=== PATIENT | female | born 1995 | race Caucasian/White ===

== ENCOUNTER 2019-01-07 14:05 | Emergency (ER) | payer OTHER ==
[2019-01-07 14:21] VITALS: BP 162/112
[2019-01-07] MEDS ORDERED: ALBUTEROL SULFATE 2.5 MG/3 ML NEBU. NEB ONE (14:45)
[2019-01-07] MEDS ORDERED: AZIT250T PO (15:36)
[2019-01-07] MEDS ORDERED: ALBU2.5V5 NEB (15:36)
--- NOTE | 2019-01-07 15:36 | PHYS DOC ---
Past History Past Medical History: Anxiety, Asthma, Depression Past Surgical History: No Surgical History Smoking: Non-smoker Alcohol Use: None Drug Use: None Adult General Chief Complaint Chief Complaint: SHORTNESS OF BREATH HPI HPI Patient is a 23-year-old female who presents with complaint of cough, wheezing and shortness of breath for last several days. Patient states that she has history of asthma and has been using some albuterol nebulizer solution but states that it's not really been helping. She states that she thinks she's been running a low-grade fever. She indicates the cough has not been productive of sputum.[] Review of Systems Review of Systems Constitutional: Positive subjective fever[] Respiratory: Positive cough, wheezing and shortness of breath [] Cardiovascular: No additional information not addressed in HPI [] Neurologic: Denies headache, focal weakness or sensory changes [] All other systems were reviewed and found to be within normal limits, except as documented in this note. Current Medications Current Medications Current Medications Medications (Trade) Dose Ordered Sig/John Start Time Stop Time Status Last Admin Dose Admin Albuterol Sulfate (Ventolin) 2.5 mg 1X ONCE 01/07/19 14:45 01/07/19 14:59 DC 01/07/19 15:07 2.5 MG Allergies Allergies Allergies Coded Allergies Type Severity Reaction Last Updated Verified No Known Drug Allergies 01/30/14 No Physical Exam Physical Exam Constitutional: Well developed, well nourished, no acute distress, non-toxic appearance. [] Cardiovascular:Heart rate regular rhythm, no murmur [] Lungs & Thorax: Fairly good air movement is noted throughout with fine rhonchi to auscultation [] Skin: Warm, dry, no erythema, no rash. [] Extremities: No tenderness, no cyanosis, no clubbing, ROM intact, no edema. [] Current Patient Data Vital Signs Vital Signs Date Time Temp Pulse Resp B/P (MAP) Pulse Ox O2 Delivery O2 Flow Rate FiO2 01/07/19 14:21 97.8 106 18 98 Room Air EKG EKG [] Radiology/Procedures Radiology/Procedures [] Course & Med Decision Making Course & Med Decision Making Pertinent Labs and Imaging studies reviewed. (See chart for details) [] Dragon Disclaimer Dragon Disclaimer This electronic medical record was generated, in whole or in part, using a voice recognition dictation system. Departure Departure: Impression: Primary Impression: Bronchitis with bronchospasm Disposition: HOME, SELF-CARE Condition: STABLE Referrals: SUJIT BRUCE MD (PCP) Patient Instructions: Acute Bronchitis Scripts Azithromycin (ZITHROMAX) 250 Mg Tablet 1 PKG PO UD for infection, #6 TAB Prov: CANDELARIO POOLE Jr. DO 01/07/19 Albuterol Sulfate (ALBUTEROL SULFATE NEB SOLN ) 2.5 Mg/3 Ml Vial.neb 1 VIAL NEB PRN Q4HRS PRN for WHEEZING, #50 VIAL Prov: CANDELARIO POOLE Jr. DO 01/07/19 CANDELARIO POOLE Jr. DO Jan 07, 2019 15:36
== END 2019-01-07 15:41 | disposition home or self-care (01) ==
LOC: ER 14:05
DX: J45.909 Unspecified asthma, uncomplicated (principal); J98.01 Acute bronchospasm
CPT/HCPCS: 94640; 99283; J7613

== ENCOUNTER 2019-11-11 19:59 | Emergency (ER) | payer OTHER ==
[~2019-11-11] VITALS: Ht 157.5 cm; Wt 117.0 kg
[~2019-11-11 19:59] MED LIST: ALBU2.5V5 NEB; AZIT250T PO
--- NOTE | 2019-11-11 21:07 | PHYS DOC ---
Past History Past Medical History: Anxiety, Asthma, Depression Past Surgical History: No Surgical History Smoking: Non-smoker Alcohol Use: None Drug Use: None General Adult EDM: Chief Complaint: SORE THROAT HPI: HPI: 24-year-old female presents with 4-day history of sore throat. It is not really getting worse, but it has not gone away. She is also had some intermittent chest pains with deep breathing over the same time. She denies fever chills. She denies shortness of breath or diaphoresis. Review of Systems: Review of Systems: Constitutional: Denies fever or chills Eyes: Denies change in visual acuity HENT: sore throat Respiratory: Cough with mild shortness of breath Cardiovascular: Chest pain with deep breathing GI: Denies abdominal pain, nausea, vomiting, bloody stools or diarrhea : Denies dysuria Musculoskeletal: Denies back pain or joint pain Integument: Denies rash Neurologic: Denies headache, focal weakness or sensory changes Endocrine: Denies polyuria or polydipsia Lymphatic: Denies swollen glands Psychiatric: Denies depression or anxiety Heart Score: HEART Score for Chest Pain: HEART Score for Chest Pain Response (Comments) Value History Slighlty/Non-Suspicious 0 ECG Normal 0 Age < 45 0 Risk Factors 1 or 2 Risk Factors 1 Troponin < Normal Limit 0 Total 1 Risk Factors: Risk Factors: DM, Current or recent (<one month) smoker, HTN, HLP, family history of CAD, obesity. Risk Scores: Score 0 - 3: 2.5% MACE over next 6 weeks - Discharge Home Score 4 - 6: 20.3% MACE over next 6 weeks - Admit for Clinical Observation Score 7 - 10: 72.7% MACE over next 6 weeks - Early Invasive Strategies Allergies: Allergies: Allergies Coded Allergies Type Severity Reaction Last Updated Verified No Known Drug Allergies 01/30/14 No Physical Exam: PE: Constitutional: Well developed, morbidly obese, well nourished, no acute distress, non-toxic appearance. [] HENT: Normocephalic, atraumatic, bilateral external ears normal, oropharynx moist, without tonsillar exudates, nose normal. [] Eyes: PERRLA, EOMI, conjunctiva normal, no discharge. [] Neck: Normal range of motion, no tenderness, supple, no stridor. [] Cardiovascular:Heart rate regular rhythm, no murmur [] Lungs & Thorax: Bilateral breath sounds clear to auscultation [] Abdomen: Bowel sounds normal, soft, no tenderness, no masses, no pulsatile masses. [] Skin: Warm, dry, no erythema, no rash. [] Back: No tenderness, no CVA tenderness. [] Extremities: No tenderness, no cyanosis, no clubbing, ROM intact, no edema. [] Neurologic: Alert and oriented X 3, normal motor function, normal sensory function, no focal deficits noted. [] Psychologic: Affect normal, judgement normal, mood normal. [] Current Patient Data: Labs: Laboratory Tests Test 11/11/19 20:48 POC Urine HCG, Qualitative hcg negative (Negative) EKG: EKG: [] Radiology/Procedures: Radiology/Procedures: [] Impressions: INDICATION: Reason: CP / Spl. Instructions: / History: COMPARISON: None. FINDINGS: 2 view of chest obtained. Mildly hypoexpanded exam without a definite focal airspace consolidation or pulmonary edema. Cardiac silhouette is unremarkable. IMPRESSION: * Hypoexpanded exam without definite focal airspace consolidation. Electronically signed by: Juanito Roth MD (11/11/2019 9:08 PM) [id number] DICTATED AND SIGNED BY: JUANITO ROTH MD DATE: 11/11/192107 CC: HU OLSON DO; LILIAN ECHEVARRIA DO ~ Course & Med Decision Making: Course & Med Decision Making Pertinent Labs and Imaging studies reviewed. (See chart for details) The patient's labs are unremarkable. Her chest x-ray is negative for acute findings. Her rapid strep is negative. This appears to be a viral pharyngitis. She is stable for discharge at this time. [] Dragon Disclaimer: Dragon Disclaimer: This electronic medical record was generated, in whole or in part, using a voice recognition dictation system. Departure Departure: Impression: Primary Impression: Acute viral pharyngitis Disposition: 01 HOME/RESIDENCE PRIOR TO ADM Condition: STABLE Referrals: SUJIT BRUCE MD (PCP) Justification of Admission: Justification of Admission: Justification of Admission Dx: N/A HU OLSON DO Nov 11, 2019 21:07
[2019-11-11 21:10] LABS: BASO # 0.1 x10^3/uL (0.0-0.2); BASO % 1 % (0-3); EOS # 0.1 x10^3/uL (0.0-0.7); EOS % 2 % (0-3); HEMATOCRIT 44.3 % (36.0-47.0); HEMOGLOBIN 14.9 g/dL (12.0-15.5); LYMPH # 2.5 x10^3/uL (1.0-4.8); LYMPH % 30 % (24-48); MEAN CORPUSCULAR HEMOGLOBIN 30 pg (25-35); MEAN CORPUSCULAR HGB CONC 34 g/dL (31-37); MEAN CORPUSCULAR VOLUME 90 fL (79-100); MONO # 0.4 x10^3/uL (0.0-1.1); MONO % 4 % (0-9); NEUT # 5.2 x10^3uL (1.8-7.7); NEUT % 63 % (31-73); PLATELET COUNT 297 x10^3/uL (140-400); RED BLOOD COUNT 4.95 x10^6/uL (3.50-5.40); RED CELL DISTRIBUTION WIDTH 13.4 % (11.5-14.5); WHITE BLOOD COUNT 8.4 x10^3/uL (4.0-11.0)
--- NOTE | 2019-11-11 21:11 | RAD ---
INDICATION: Reason: CP / Spl. Instructions: / History: COMPARISON: None. FINDINGS: 2 view of chest obtained. Mildly hypoexpanded exam without a definite focal airspace consolidation or pulmonary edema. Cardiac silhouette is unremarkable. IMPRESSION: * Hypoexpanded exam without definite focal airspace consolidation. Electronically signed by: David Arellano MD (11/11/2019 9:08 PM) [id number]
[2019-11-11 21:12] LABS: CALCIUM 8.9 mg/dL (8.5-10.1); CREATININE 1.1 mg/dL (0.6-1.0); GFR 62.1; POTASSIUM 3.8 mmol/L (3.5-5.1)
[2019-11-11 21:18] LABS: ALBUMIN 3.7 g/dL (3.4-5.0); ALBUMIN/GLOBULIN RATIO 0.9 (1.0-1.7); TOTAL BILIRUBIN 0.3 mg/dL (0.2-1.0); TOTAL PROTEIN 7.6 g/dL (6.4-8.2)
[2019-11-11 21:28] LABS: BACTERIA,URINE FEW /HPF (0-FEW); BILIRUBIN,URINE NEG (NEG); CLARITY,URINE HAZY; COLOR,URINE YELLOW; GLUCOSE,URINE NEG (NEG); NITRITE,URINE NEG (NEG); SQUAMOUS EPITHELIAL CELL,UR MOD /LPF; UROBILINOGEN,URINE 0.2 mg/dL (0.2 mg/dL)
[2019-11-11 22:05] VITALS: BP 110/74
--- NOTE | 2019-11-11 23:44 | EKG ---
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
== END 2019-11-11 22:05 | disposition home or self-care (01) ==
LOC: ER 19:59
DX: J02.8 Acute pharyngitis due to other specified organisms (principal); B97.89 Other viral agents as the cause of diseases classified elsewhere; R07.1 Chest pain on breathing; J45.909 Unspecified asthma, uncomplicated; F41.9 Anxiety disorder, unspecified; F32.9 Major depressive disorder, single episode, unspecified
CPT/HCPCS: 36415; 71046; 80053; 81001; 81025; 85025; 87070; 87880; 93005; 99285

== ENCOUNTER 2020-05-17 17:38 | Emergency (ER) | payer OTHER ==
[~2020-05-17] VITALS: Ht 157.5 cm; Wt 117.0 kg
[2020-05-17 18:20] VITALS: BP 130/70
[2020-05-17] MEDS ORDERED: ONDANSETRON PF 4 MG/2 ML VIAL. IVP ONE (18:30)
[2020-05-17] MEDS ORDERED: MORPHINE SULFATE 2 MG/ML DISP.SYRIN. ONE (19:12)
[2020-05-17] MEDS ORDERED: MORPHINE SULFATE 2 MG/ML DISP.SYRIN. IV ONE (19:15)
[2020-05-17 19:16] LABS: BASO # 0.1 x10^3/uL (0.0-0.2); BASO % 1 % (0-3); EOS # 0.2 x10^3/uL (0.0-0.7); EOS % 3 % (0-3); HEMATOCRIT 42.9 % (36.0-47.0); HEMOGLOBIN 14.5 g/dL (12.0-15.5); LYMPH # 2.4 x10^3/uL (1.0-4.8); LYMPH % 29 % (24-48); MEAN CORPUSCULAR HEMOGLOBIN 29 pg (25-35); MEAN CORPUSCULAR HGB CONC 34 g/dL (31-37); MEAN CORPUSCULAR VOLUME 87 fL (79-100); MONO # 0.4 x10^3/uL (0.0-1.1); MONO % 5 % (0-9); NEUT # 5.2 x10^3uL (1.8-7.7); NEUT % 63 % (31-73); PLATELET COUNT 289 x10^3/uL (140-400); RED BLOOD COUNT 4.92 x10^6/uL (3.50-5.40); RED CELL DISTRIBUTION WIDTH 13.5 % (11.5-14.5); WHITE BLOOD COUNT 8.4 x10^3/uL (4.0-11.0)
[2020-05-17 19:17] LABS: ALBUMIN 3.8 g/dL (3.4-5.0); ALBUMIN/GLOBULIN RATIO 0.9 (1.0-1.7); CALCIUM 9.5 mg/dL (8.5-10.1); CREATININE 0.9 mg/dL (0.6-1.0); GFR 78.3; TOTAL BILIRUBIN 0.3 mg/dL (0.2-1.0); TOTAL PROTEIN 7.9 g/dL (6.4-8.2)
--- NOTE | 2020-05-17 19:28 | PHYS DOC ---
Past History Past Medical History: Anxiety, Asthma, Depression, Other Additional Past Medical Histor: born with FAS - delayed learning (REJI STARKS APRN) Past Surgical History: No Surgical History (REJI STARKS APRN) Smoking: Non-smoker Alcohol Use: None Drug Use: None (REJI STARKS APRN) Adult General Chief Complaint Chief Complaint: ABDOMINAL PAIN HPI HPI Patient is a 24-year-old female reports emergency department complaining of right upper quadrant pain started last night shortly after eating chili. Patient rates her pain a 7/10 pain on a 1-10 pain scale. Patient denies any previous gallbladder disease. Patient denies any vomiting or other abdominal pains or constipation. Patient states she had one bout of diarrhea today but had a normal BM yesterday patient states her diarrhea still consisted of brown to loose watery stool without blood. Patient states she is nauseated. Patient denies any swelling to her extremities, denies any numbness or tingling to her extremities. Patient denies any loss of taste or loss of smell. Patient denies any headaches. Patient denies any chest pain, denies chest palpitations, denies shortness of breath, denies chest congestion or nasal congestion. Patient denies any vaginal discharge, denies any STI concerns. Patient denies any increased thirst or increased urination. 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 Patient states that she takes 150 mg Effexor daily, 300 mg Seroquel nightly, 25 mg Seroquel every morning, 25 mg Seroquel at noon. Lamictal 200 mg daily, Singulair daily, 10 mg Zyrtec daily, Metformin 500 mg twice daily, Cryselle control pill daily. Patient states she has a history of type 2 diabetes, depression, anxiety, denies being a cigarette smoker, denies illicit drug use, denies alcohol use. (REJI STARKS APRN) Review of Systems Review of Systems 14 body systems of review of systems have been reviewed. See HPI for pertinent positives and negative responses, otherwise all other systems are negative, nonpertinent or noncontributory. (REJI STARKS APRN) Current Medications Current Medications Current Medications Medications (Trade) Dose Ordered Sig/John Start Time Stop Time Status Last Admin Dose Admin Morphine Sulfate (Morphine 2mg Syringe) 2 mg STK-MED ONCE 05/17/20 19:12 05/17/20 19:12 DC Ondansetron HCl (Zofran) 4 mg 1X ONCE 05/17/20 18:30 05/17/20 18:31 DC 05/17/20 18:30 4 MG (REJI STARKS APRN) Allergies Allergies Allergies Coded Allergies Type Severity Reaction Last Updated Verified No Known Drug Allergies 01/30/14 No (REJI STARKS APRN) Physical Exam Physical Exam Constitutional: Well developed, well nourished, no acute distress, non-toxic appearance. Patient is age appropriate. HENT: Normocephalic, atraumatic, bilateral external ears normal, oropharynx moist, no oral exudates, nose normal. Eyes: PERRLA, EOMI, conjunctiva normal, no discharge. Neck: Normal range of motion, no tenderness, supple, no stridor. Cardiovascular:Heart rate regular rhythm, no murmur Lungs & Thorax: Bilateral breath sounds clear to auscultation Abdomen: Bowel sounds normal, soft, no tenderness, no masses, no pulsatile masses. Right upper quadrant pain to palpation, positive Francois sign, no rebound tenderness, no psoas sign, no McBurney's point tenderness. Abdomen round, obese. Skin: Warm, dry, no erythema, no rash. Back: No tenderness, no CVA tenderness to the right or left. Extremities: No tenderness, no cyanosis, no clubbing, ROM intact, no edema. Neurologic: Alert and oriented X 3, normal motor function, normal sensory function, no focal deficits noted. Psychologic: Affect normal, judgement normal, mood normal. (REJI STARKS APRN) Current Patient Data Vital Signs Laboratory Tests Test 05/17/20 18:12 05/17/20 18:18 05/17/20 18:40 Urine Collection Type Unknown Urine Color Yellow Urine Clarity Clear Urine pH 6.0 Urine Specific Cost 1.025 Urine Protein Neg Urine Glucose (UA) Neg mg/dL Urine Ketones (Stick) Neg mg/dL Urine Blood Trace Urine Nitrite Neg Urine Bilirubin Neg Urine Urobilinogen Dipstick 0.2 mg/dL Urine Leukocyte Esterase Neg Urine RBC 3-5 /HPF Urine WBC Occ /HPF Urine Squamous Epithelial Cells Many /LPF Urine Bacteria Few /HPF Bedside Urine HCG, Qualitative hcg negative White Blood Count 8.4 x10^3/uL Red Blood Count 4.92 x10^6/uL Hemoglobin 14.5 g/dL Hematocrit 42.9 % Mean Corpuscular Volume 87 fL Mean Corpuscular Hemoglobin 29 pg Mean Corpuscular Hemoglobin Concent 34 g/dL Red Cell Distribution Width 13.5 % Platelet Count 289 x10^3/uL Neutrophils (%) (Auto) 63 % Lymphocytes (%) (Auto) 29 % Monocytes (%) (Auto) 5 % Eosinophils (%) (Auto) 3 % Basophils (%) (Auto) 1 % Neutrophils # (Auto) 5.2 x10^3uL Lymphocytes # (Auto) 2.4 x10^3/uL Monocytes # (Auto) 0.4 x10^3/uL Eosinophils # (Auto) 0.2 x10^3/uL Basophils # (Auto) 0.1 x10^3/uL Sodium Level 141 mmol/L Potassium Level 4.0 mmol/L Chloride Level 103 mmol/L Carbon Dioxide Level 27 mmol/L Anion Gap 11 Blood Urea Nitrogen 16 mg/dL Creatinine 0.9 mg/dL Estimated GFR (Cockcroft-Gault) 78.3 BUN/Creatinine Ratio 18 Glucose Level 90 mg/dL Calcium Level 9.5 mg/dL Total Bilirubin 0.3 mg/dL Aspartate Amino Transf (AST/SGOT) 17 U/L Alanine Aminotransferase (ALT/SGPT) 29 U/L Alkaline Phosphatase 103 U/L Total Protein 7.9 g/dL Albumin 3.8 g/dL Albumin/Globulin Ratio 0.9 Lipase 112 U/L Current Medications Medications (Trade) Dose Ordered Sig/John Route PRN Reason Start Time Stop Time Status Last Admin Dose Admin Ondansetron HCl (Zofran) 4 mg 1X ONCE IVP 05/17/20 18:30 05/17/20 18:31 DC 05/17/20 18:30 Morphine Sulfate (Morphine 2mg Syringe) 2 mg 1X ONCE IV 05/17/20 19:15 05/17/20 19:16 DC 05/17/20 19:14 Morphine Sulfate (Morphine 2mg Syringe) 2 mg STK-MED ONCE .ROUTE 05/17/20 19:12 05/17/20 19:12 DC Fentanyl Citrate (Fentanyl 2ml Vial) 75 mcg 1X ONCE IVP 05/17/20 20:45 05/17/20 20:49 DC 05/17/20 20:50 Vital Signs Date Time Temp Pulse Resp B/P (MAP) Pulse Ox O2 Delivery O2 Flow Rate FiO2 05/17/20 18:20 97.8 98 18 130/70 (90) 100 Lab Results Laboratory Tests Test 05/17/20 18:18 POC Urine HCG, Qualitative hcg negative (Negative) (REJI STARKS APRN) EKG EKG [] (REJI STARSK APRN) Radiology/Procedures Radiology/Procedures SEX: F EXAM STATUS: REG ER ORD. PHYSICIAN: REJI STARKS APRN REASON: RUQ PAIN, POSITIVE FRANCOIS'S SIGN PROCEDURE: ABDOMEN LTD EXAM: Abdomen sonogram. HISTORY: Right upper quadrant pain. TECHNIQUE: Sonographic imaging of the abdomen was performed. COMPARISON: None. FINDINGS: The liver is enlarged. There is hepatic steatosis. There is a circumscribed hypoechoic vascular lesion within the right hepatic lobe measuring 4.8 x 3.9 x 3.2 cm. The gallbladder wall is normal in thickness. There is a positive sonographic Francois's sign. The common bile duct is normal in caliber. The pancreas, inferior vena cava and aorta are obscured due to bowel gas. The right kidney is unremarkable. IMPRESSION: 1. Hepatomegaly and hepatic steatosis. 2. Positive sonographic Francois's sign. There are no secondary sonographic findings to suggest cholecystitis. 3. 4.8 cm solid lesion with blood flow within the right hepatic lobe. Nonemergent liver protocol MRI or CT is recommended. Electronically signed by: Christa Rivera MD (05/17/2020 8:00 PM) [facility] DICTATED AND SIGNED BY: CHRISTA RIVERA MD DATE: 05/17/201957 CC: REJI STARKS APRN; AMANDA PERKINS DO; PCP,UNKNOWN ~MTH0 0 (REJI STARKS APRN) Heart Score Risk Factors: Risk Factors: DM, Current or recent (<one month) smoker, HTN, HLP, family history of CAD, obesity. Risk Scores: Risk Factors: DM, Current or recent (<one month) smoker, HTN, HLP, family history of CAD, obesity. (REJI STARKS APRN) Course & Med Decision Making Course & Med Decision Making Pertinent Labs and Imaging studies reviewed. (See chart for details) 24-year-old female presents emergency department right upper quadrant pain, physical exam concerning for gallbladder disease. Labs were ordered, pending sonogram of gallbladder at this time. Patient was given 30 mg Toradol for pain IV and 1 L of normal saline bolus. Labs still pending, still pending sono tech to perform sonogram at this time, reevaluated patient's pain, patient states her pain is increasing. Patient given 2 mg of morphine sulfate IV. Patient states some morphine brought her pain down to a 5/10 but has returned back to a 7/10 pain. Still awaiting chemistry results. Patient given 75 mg fentanyl IV push for pain. Patient serum labs equivocal. Sonogram results read concerning for gallbladder disease per house radiologist interpretation, discussed case with general surgeon Dr. Armstrong who recommended patient call his office on Tuesday for an appointment to have evaluation for cholecystectomy. Discussed with patient Dr. Armstrong's recommendations, patient gave verbal understanding of calling Dr. Armstrong's office on Tuesday for appointment. Patient was given 4 more milligrams of morphine IV push prior to discharge. Patient gave verbal understanding of discharge home instructions, return to ER concerns, follow-up with primary care physician soon, patient had no further questions or concerns, patient discharged home without incident. Impression: #1 cholecystitis #2 right upper quadrant pain (REJI STARKS APRN) Course & Med Decision Making I oversaw on the above date of service of this patient and discussed the care with the DIGITAL PHOTO PRINTER. I advised DIGITAL PHOTO PRINTER to consult general surgery office for further recommendations and agree with their decision for close outpatient follow-up. I agree with the findings, plan of care, and disposition as documented. (AMANDA PERKINS DO) [place] Disclaimer Dragon Disclaimer This electronic medical record was generated, in whole or in part, using a voice recognition dictation system. (REJI STARKS APRN) Departure Departure: Impression: Primary Impression: Cholecystitis Additional Impression: Right upper quadrant pain Disposition: 01 DC HOME SELF CARE/HOMELESS Condition: IMPROVED Referrals: PCP,UNKNOWN (PCP) Patient Instructions: Cholecystitis Additional Instructions: Your sonogram was suggestive of gallbladder disease, please follow-up with general surgeon Dr. Armstrong this Tuesday, call for an appointment at his office number [phone]. Please avoid fatty foods and dairy products until evaluated by general surgery, you can use Tylenol and/or ibuprofen for pain. Please return to the emergency department for worsening symptoms or other concerns, please call your primary care physician this Tuesday for follow-up appointment and if you require referral for general surgery. EMERGENCY DEPARTMENT GENERAL DISCHARGE INSTRUCTIONS Thank you for coming to [facility] (ED) today and trusting us with you care. We trust that you had a positivie experience in our Emergency Department. If you wish to speak to the department management, you may call the director at . YOUR FOLLOW UP INSTRUCTIONS ARE FOLLOWS: 1. Do you have a private Doctor? If you do not have a private doctor, please ask for a resource list of physicians or clinics that may be able to assist you with follow up care. 2. The Emergency Physician has interpreted your x-rays. The X-Ray specialist will also review them. If there is a change in the findings, you will be notified in 48 hours when at all possible. 3. A lab test or culture has been done, your results will be reviewed and you will be notified if you need a change in treatment. ADDITIONAL INSTRUCTIONS AND INFORMATION: 1. Your care today has been supervised by a physician who is specially trained in emergency care. Many problems require more than one evaluation for a complete diagnosis and treatment. We recommend that you schedule your follow up appointment as recommended to ensure complete treatment of you illness or injury. If you are unable to obtain follow up care and continue to have a problem, or if your condition worsens, we recommend that you return to the ED. 2. We are not able to safely determine your condition over the phone nor are we able to give sound medical advice over the phone. For these safety reasons, if you call for medical advice we will ask you to come to the ED for further evaluation. 3. If you have any questions regarding these discharge instructions please call the ED at [phone]. SAFETY INFORMATION: In the interest of safety, wellness, and injury prevention; we encourage you to wear your sealbelt, if you smoke; quite smoking, and we encourage family to use a protective helmet for bicycling and other sporting events that present an increased risk for head injury. IF YOUR SYMPTOMS WORSEN OR NEW SYMPTOMS DEVELOP, OR YOU HAVE CONCERNS ABOUT YOUR CONDITION; OR IF YOUR CONDITION WORSENS WHILE YOU ARE WAITING FOR YOUR FOLLOW UP APPOINTMENT; EITHER CONTACT YOUR PRIMARY CARE DOCTOR, THE PHYSICIAN WHOSE NAME AND NUMBER YOU WERE GIVEN, OR RETURN TO THE ED IMMEDIATELY. Scripts Ibuprofen (IBUPROFEN) 600 Mg Tablet 600 MG PO TID PRN PRN for PAIN, #20 TAB 0 Refills Prov: REJI STARKS APRN 05/17/20 Problem Qualifiers REJI STARKS APRN May 17, 2020 19:28 AMANDA PERKINS DO May 18, 2020 01:31
[2020-05-17 19:42] LABS: BILIRUBIN,URINE NEG (NEG); CLARITY,URINE CLEAR; COLOR,URINE YELLOW; GLUCOSE,URINE NEG (NEG); NITRITE,URINE NEG (NEG); UROBILINOGEN,URINE 0.2 mg/dL (0.2 mg/dL)
[2020-05-17 19:43] LABS: BACTERIA,URINE FEW /HPF (0-FEW); SQUAMOUS EPITHELIAL CELL,UR MANY /LPF; WBC,URINE OCC /HPF (0-4)
--- NOTE | 2020-05-17 20:02 | RAD ---
EXAM: Abdomen sonogram. HISTORY: Right upper quadrant pain. TECHNIQUE: Sonographic imaging of the abdomen was performed. COMPARISON: None. FINDINGS: The liver is enlarged. There is hepatic steatosis. There is a circumscribed hypoechoic vasc ular lesion within the right hepatic lobe measuring 4.8 x 3.9 x 3.2 cm. The gallbladder wall is catarina l in thickness. There is a positive sonographic Francois's sign. The common bile duct is normal in mario li. The pancreas, inferior vena cava and aorta are obscured due to bowel gas. The right kidney is un remarkable. IMPRESSION: 1. Hepatomegaly and hepatic steatosis. 2. Positive sonographic Francois's sign. There are no secondary sonographic findings to suggest cholecy stitis. 3. 4.8 cm solid lesion with blood flow within the right hepatic lobe. Nonemergent liver protocol MRI or CT is recommended. Electronically signed by: Christa Mitchell MD (05/17/2020 8:00 PM) [facility]
[2020-05-17] MEDS ORDERED: IBUP600T16 PO (21:34)
[2020-05-17] MEDS ORDERED: MORPHINE SULFATE 4 MG/ML DISP.SYRIN. IV ONE (22:00)
== END 2020-05-17 22:00 | disposition home or self-care (01) ==
LOC: ER 17:38
DX: K81.9 Cholecystitis, unspecified (principal); R10.11 Right upper quadrant pain; R19.7 Diarrhea, unspecified; R11.0 Nausea; F41.9 Anxiety disorder, unspecified; J45.909 Unspecified asthma, uncomplicated; F32.9 Major depressive disorder, single episode, unspecified
CPT/HCPCS: 36415; 76705; 80053; 81001; 81025; 83690; 85025; 96374; 96375; 96376; 99284; J2270; J2405; J3010

== ENCOUNTER 2020-05-19 02:40 | Emergency (ER) | payer OTHER ==
[~2020-05-19] VITALS: Ht 157.5 cm; Wt 117.0 kg
[~2020-05-19 02:40] MED LIST changes: +IBUP600T16 PO
[2020-05-19] MEDS ORDERED: HYDR-3165 PO (04:15)
--- NOTE | 2020-05-19 04:16 | PHYS DOC ---
Past History Past Medical History: Anxiety, Asthma, Depression, Other Additional Past Medical Histor: born with FAS - delayed learning Past Surgical History: No Surgical History Smoking: Non-smoker Alcohol Use: None Drug Use: None Adult General Chief Complaint Chief Complaint: ABDOMINAL PAIN HPI HPI Patient is a 24-year-old female presenting for right upper quadrant pain. Patient was evaluated our facility for this approximately 24 hours ago and had extensive work-up performed. She had unremarkable laboratory analysis and right upper quadrant ultrasound that showed hepatomegaly, hepatosteatosis and lesion with blood flow with recommendations for nonemergent outpatient imaging. She presents today with ongoing pain and poor pain control with ibuprofen and Tylenol use at home. She is here with mother. There have been no provocation factors, no trauma, recent ingestions or other events that could have exacerbated patient's pain. She is here for pain control. Denies fever, lightheadedness, chest pain, shortness of breath, other abdominal pain, no nausea vomit diarrhea, no changes in stool caliber Review of Systems Review of Systems Fourteen body systems of review of systems have been reviewed. See HPI for pertinent positives and negative responses, other liao all other systems are negative, non-pertinent or non-contributory Allergies Allergies Allergies Coded Allergies Type Severity Reaction Last Updated Verified No Known Drug Allergies 01/30/14 No Physical Exam Physical Exam Constitutional: Well developed, well nourished, no acute distress, non-toxic appearance. HENT: Normocephalic, atraumatic, bilateral external ears normal, oropharynx moist, no oral exudates, nose normal. Eyes: PERRLA, EOMI, conjunctiva normal, no discharge. Neck: Normal range of motion, no tenderness, supple, no stridor. Cardiovascular: Heart rate regular, sinus rhythm, no murmurs rubs or gallops Lungs & Thorax: Bilateral breath sounds clear to auscultation Abdomen: Bowel sounds normal, soft, right upper quadrant tenderness with palpation with voluntary guarding present, no rebound, no masses, no pulsatile masses. Nonsurgical abdomen, no peritoneal signs Skin: Warm, dry, no erythema, no rash. Back: No tenderness, no CVA tenderness. Extremities: No tenderness, no cyanosis, no clubbing, ROM intact, no edema. Neurologic: Alert and oriented X 3, grossly normal motor & sensory function, no focal deficits noted. Psychologic: Flat affect, anxious mood EKG EKG [] Radiology/Procedures Radiology/Procedures [] Heart Score Risk Factors: Risk Factors: DM, Current or recent (<one month) smoker, HTN, HLP, family history of CAD, obesity. Risk Scores: Risk Factors: DM, Current or recent (<one month) smoker, HTN, HLP, family history of CAD, obesity. Course & Med Decision Making Course & Med Decision Making Discussed with the patient and her mother all findings and diagnostic testing that was recently performed. I discussed most likely diagnosis of nonemergent abdominal pain that requires continued outpatient work-up. I called radiology regarding nonemergent imaging recommendations for liver protocol MRI versus liver protocol CT, they advised if case was not emergent that best suited picture for patient suspect lesion as liver protocol MRI. I discussed this conversation with mother and patient, I discussed given nonemergent nature of condition that I would recommend pursuing this image in outpatient setting. Patient has good access to care with PCP and can have this performed within upcoming 1 to 2 weeks which I feel is reasonable. I offered repeat diagnostic work-up while in ER with consideration for CT imaging but after discussing work- up thus far and physical exam findings, joint decision among all to defer. Nonetheless, I educated on supportive care practices and gave short-term pain medicine prescription for severe pain only. I stressed need for close outpatient follow-up to review today's ER visit. Strict return precautions were also discussed at length with good understanding by patient. Patient and mother voiced understanding and agreement with the plan. Patient and mother knows to come back for repeat evaluation if concerning signs or symptoms present prior to outpatient follow-up. Hemodynamically stable, ambulatory and well-appearing at time of disposition. Dragon Disclaimer Dragon Disclaimer This electronic medical record was generated, in whole or in part, using a voice recognition dictation system. Departure Departure: Impression: Primary Impression: Right upper quadrant pain Disposition: 01 DC HOME SELF CARE/HOMELESS Condition: STABLE Referrals: PCP,UNKNOWN (PCP) Patient Instructions: Abdominal Pain Additional Instructions: You have been evaluated in the Emergency Department today for abdominal pain. Your evaluation was not suggestive of any emergent condition requiring medical intervention at this time. However, some abdominal problems make take more time to appear. Therefore, it is important for you to watch for any new symptoms or worsening of your current condition. As discussed at length, please call your primary care physician. You would benefit from continued outpatient follow-up that would include a liver protocol MRI. I still recommend that you follow-up in outpatient setting with a general surgeon as previously advised We discussed utility of repeat diagnostic work-up in ER setting given unremarkable laboratory analysis and recent sonogram that showed no emergent and/or surgical pathology performed 48 hours ago. Joint decision was made to defer further work-up to outpatient setting Return to the Emergency Department if you experience worsening pain, persistent fevers greater than 100.4, recurrent vomiting, blood in vomit, blood in stool, dark tarry stool, chest pain, difficulty breathing, or any other concerning symptoms. It was a pleasure to take care of you and I wish you the best going forward Scripts Hydrocodone Bit/Acetaminophen (NORCO 5-325 TABLET) 1 Each Tablet 0.5 TAB PO PRN Q6HRS PRN for PAIN, #12 TAB 0 Refills Prov: AMANDA PERKINS DO 05/19/20 AMANDA PERKINS DO May 19, 2020 04:16
[2020-05-19 04:45] VITALS: BP 148/98
[2020-05-19] MEDS ORDERED: HYDROcodone/APAP 5/325MG 1 TAB TABLET PO ONE (05:00)
== END 2020-05-19 04:45 | disposition home or self-care (01) ==
LOC: ER 02:40
DX: R10.11 Right upper quadrant pain (principal); F41.9 Anxiety disorder, unspecified; J45.909 Unspecified asthma, uncomplicated; F32.9 Major depressive disorder, single episode, unspecified
CPT/HCPCS: 99283

== ENCOUNTER 2021-03-31 09:59 | Emergency (ER) | payer OTHER ==
[~2021-03-31] VITALS: Ht 157.5 cm; Wt 113.6 kg
[~2021-03-31 09:59] MED LIST changes: +HYDR-3165 PO
--- NOTE | 2021-03-31 10:03 | PHYS DOC ---
Past History Past Medical History: Anxiety, Asthma, Depression, Other Additional Past Medical Histor: born with FAS - delayed learning Past Surgical History: No Surgical History Smoking: Non-smoker Alcohol Use: None Drug Use: None Adult General Chief Complaint Chief Complaint: ABDOMINAL PAIN HPI HPI Patient is a 25-year-old female presenting for multiple complaints. States she has no known medical diagnoses and takes no medications on a daily basis. Reports she developed URI symptoms approximately 1 week ago and was seen at local urgent care, she was ultimately discharged home with prednisone taper. She admits 3 days ago developing generalized abdominal pain and diarrhea. Reports she has had approximately 6 episodes of nonbloody diarrhea that is unusual for her in absence of any concerning exposures such as healthcare settings or recent antibiotic use. Reports development of right lower quadrant pain that is waxed and waned that was first noticed yesterday morning. This increased in frequency up until this morning when it became a constant pain concerning her to come in for evaluation. Denies any fever, chest pain, shortness of breath, urinary symptoms or constipation. She has no history of any intra-abdominal surgeries or other obvious abnormalities. She does admit she has outpatient GI specialist for which she has not seen recently. States she goes there because of her stomach and liver but cannot offer any more information on this Review of Systems Review of Systems Fourteen body systems of review of systems have been reviewed. See HPI for pertinent positives and negative responses, other liao all other systems are negative, non-pertinent or non-contributory Allergies Allergies Allergies Coded Allergies Type Severity Reaction Last Updated Verified No Known Drug Allergies 01/30/14 No Physical Exam Physical Exam Constitutional: Well developed, well nourished, no acute distress, non-toxic appearance. HENT: Normocephalic, atraumatic, bilateral external ears normal, oropharynx moist, no oral exudates, nose normal. Eyes: PERRLA, EOMI, conjunctiva normal, no discharge. Neck: Normal range of motion, no tenderness, supple, no stridor. Cardiovascular: Heart rate regular, sinus rhythm, no murmurs rubs or gallops Lungs & Thorax: Bilateral breath sounds clear to auscultation Abdomen: Bowel sounds normal, soft, right lower quadrant pain without guarding or rebound, no masses, no pulsatile masses. Nonsurgical abdomen, no peritoneal signs Skin: Warm, dry, no erythema, no rash. Back: No tenderness, no CVA tenderness. Extremities: No tenderness, no cyanosis, no clubbing, ROM intact, no edema. Neurologic: Alert and oriented X 3, grossly normal motor & sensory function, no focal deficits noted. Psychologic: Anxious affect and mood Current Patient Data Vital Signs Vital Signs Date Time Temp Pulse Resp B/P (MAP) Pulse Ox O2 Delivery O2 Flow Rate FiO2 03/31/21 10:11 97.8 94 12 114/75 (88) 98 Room Air Vital Signs Date Time Temp Pulse Resp B/P (MAP) Pulse Ox O2 Delivery O2 Flow Rate FiO2 03/31/21 10:11 97.8 94 12 114/75 (88) 98 Room Air Lab Results Laboratory Tests Test 03/31/21 10:18 03/31/21 10:35 03/31/21 10:39 03/31/21 11:00 White Blood Count 10.5 x10^3/uL Red Blood Count 5.10 x10^6/uL Hemoglobin 15.0 g/dL Hematocrit 44.7 % Mean Corpuscular Volume 88 fL Mean Corpuscular Hemoglobin 30 pg Mean Corpuscular Hemoglobin Concent 34 g/dL Red Cell Distribution Width 14.2 % Platelet Count 315 x10^3/uL Neutrophils (%) (Auto) 63 % Lymphocytes (%) (Auto) 29 % Monocytes (%) (Auto) 5 % Eosinophils (%) (Auto) 2 % Basophils (%) (Auto) 1 % Neutrophils # (Auto) 6.6 x10^3uL Lymphocytes # (Auto) 3.0 x10^3/uL Monocytes # (Auto) 0.5 x10^3/uL Eosinophils # (Auto) 0.2 x10^3/uL Basophils # (Auto) 0.1 x10^3/uL Influenza Type A (Rapid) Negative Influenza Type B (Rapid) Negative Coronavirus (COVID-19)(PCR) Not detected Sodium Level 140 mmol/L Potassium Level 3.6 mmol/L Chloride Level 104 mmol/L Carbon Dioxide Level 26 mmol/L Anion Gap 10 Blood Urea Nitrogen 17 mg/dL Creatinine 1.0 mg/dL Estimated GFR (Cockcroft-Gault) 68.7 BUN/Creatinine Ratio 17 Glucose Level 86 mg/dL Calcium Level 9.2 mg/dL Total Bilirubin 0.5 mg/dL Aspartate Amino Transf (AST/SGOT) 24 U/L Alanine Aminotransferase (ALT/SGPT) 46 U/L Alkaline Phosphatase 127 U/L Total Protein 7.6 g/dL Albumin 4.1 g/dL Albumin/Globulin Ratio 1.2 Lipase 109 U/L Urine Collection Type Unknown Urine Color Yellow Urine Clarity Hazy Urine pH 5.5 Urine Specific [place] >=1.030 Urine Protein Trace Urine Glucose (UA) Neg mg/dL Urine Ketones (Stick) Neg mg/dL Urine Blood Large Urine Nitrite Neg Urine Bilirubin Neg Urine Urobilinogen Dipstick 0.2 mg/dL Urine Leukocyte Esterase Neg Urine RBC >40 /HPF Urine WBC Occ /HPF Urine Squamous Epithelial Cells Few /LPF Urine Bacteria 0 /HPF Urine Mucus Mod /LPF Test 03/31/21 11:09 Bedside Urine HCG, Qualitative hcg negative Current Medications Medications (Trade) Dose Ordered Sig/John Route PRN Reason Start Time Stop Time Status Last Admin Dose Admin Iohexol (Omnipaque 300 Mg/ml) 75 ml 1X ONCE IV 03/31/21 10:30 03/31/21 10:47 DC 03/31/21 11:09 Ketorolac Tromethamine (Toradol 15mg Vial) 15 mg STK-MED ONCE .ROUTE 03/31/21 13:26 03/31/21 13:26 DC Ketorolac Tromethamine (Toradol 15mg Vial) 15 mg 1X ONCE IVP 03/31/21 13:30 03/31/21 13:38 DC 03/31/21 13:30 EKG EKG [] Radiology/Procedures Radiology/Procedures EXAMINATION: CT abdomen and pelvis with IV contrast. INDICATION:25 years, Female, right lower quadrant abdominal pain. TECHNIQUE: Axial CT images of the abdomen and pelvis were obtained. Coronal and sagittal reformatted performed. COMPARISON: Ultrasound dated 10/15/2020. Exposure: One or more of the following individualized dose reduction techniques were utilized for this examination: 1. Automated exposure control 2. Adjustment of the mA and/or kV according to patient size 3. Use of iterative reconstruction technique. FINDINGS: LOWER CHEST: Unremarkable. ABDOMEN/PELVIS: Mild hepatomegaly with diffuse steatosis. Focal fat infiltration hepatic segment 4 adjacent to falciform ligament. Ill-defined 4.2 cm hyperattenuating lesion with central hypodensity seen in hepatic segment 5/6 (series 2 image 35). Gallbladder, biliary ducts, spleen, pancreas and adrenals are unremarkable. No hydronephrosis. No bowel obstruction. Normal appendix. Patent abdominal aorta and mesenteric arteries. No pneumoperitoneum or ascites. No abdominopelvic lymphadenopathy by size criteria. Underdistended urinary bladder which limits evaluation. Unremarkable uterus. No suspicious pelvic masses. MUSCULOSKELETAL STRUCTURES: No acute osseous process. Bilateral L5 pars defect. IMPRESSION: 1. No acute abnormality in the abdomen or pelvis. 2. Mild hepatomegaly with diffuse steatosis. 3. Redemonstrated ill-defined 4.2 cm hyperattenuating lesion with central hypodensity seen in hepatic segment 5/6, indeterminate. Findings suggesting of focal nodular hyperplasia. Other differential consideration is hepatic adenoma. Recommend further evaluation with MRI liver using hepatobiliary contrast (Eovist). Electronically signed by: Eddy Sanchez MD (03/31/2021 11:25 AM) [id number] Heart Score C/O Chest Pain: No Risk Factors: Risk Factors: DM, Current or recent (<one month) smoker, HTN, HLP, family history of CAD, obesity. Risk Scores: Risk Factors: DM, Current or recent (<one month) smoker, HTN, HLP, family history of CAD, obesity. Course & Med Decision Making Course & Med Decision Making ABCs unremarkable. I disclosed entirety of ER findings and discussed most likely diagnosis of right-sided abdominal pain of unknown etiology. Other diagnoses were discussed with patient such as ACS, intra-abdominal emergencies in addition to pelvic emergencies but all deemed less likely causes of patient's presentation. Patient reporting suspect Covid symptoms, she is unvaccinated and has positive COVID-19 patient contacts a PCR obtained with results pending. Patient educated on need for continued supportive care and self quarantine in the meantime. Patient later discloses during visit that she is seen in outpatient setting by GI specialist, she was updated on all findings of CT imaging regarding her liver and need for close outpatient follow-up for MRI etc. I did disclose this might be in a acute presentation more concerning pathology such as early developing appendicitis versus other abnormality but at present, no indication for further diagnostic work-up or hospitalization. Plan of care discussed at length with need for close outpatient follow-up to review today's ER visit stressed. Strict return precautions were also discussed at length with good understanding verbalized by patient. Patient voiced understanding and agreement with the plan. Patient knows to come back for repeat evaluation if concerning signs or symptoms present prior to outpatient follow-up. Hemodynamically stable, ambulatory and well-appearing at time of disposition. Dragon Disclaimer Dragon Disclaimer This electronic medical record was generated, in whole or in part, using a voice recognition dictation system. Departure Departure: Impression: Primary Impression: Abdominal pain Additional Impressions: Hepatic steatosis Abnormal liver CT Person under investigation for COVID-19 Disposition: HOME / SELF CARE / HOMELESS Condition: STABLE Referrals: LUIS AQUINO (PCP) Additional Instructions: You have been evaluated in the Emergency Department today for abdominal pain. Your evaluation was not suggestive of any emergent condition requiring medical intervention at this time. However, some abdominal problems make take more time to appear. Therefore, it is important for you to watch for any new symptoms or worsening of your current condition. As discussed prior to discharge you have findings consistent with a fatty liver. You should follow up with your store clerk specialist for this In addition, I disclosed findings of a hypodensity present on your liver that will need further evaluation using MRI which also should be followed up by your store clerk. Return to the Emergency Department if you experience worsening pain, persistent fevers greater than 100.4, recurrent vomiting, blood in vomit, blood in stool, dark tarry stool, chest pain, difficulty breathing, or any other concerning symptoms. Problem Qualifiers AMANDA PERKINS DO Mar 31, 2021 10:03
[2021-03-31] MEDS ORDERED: IOHEXOL 300 MG/ML 75 ML VIAL. IV ONE (10:30)
--- NOTE | 2021-03-31 11:28 | RAD ---
EXAMINATION: CT abdomen and pelvis with IV contrast. INDICATION:25 years, Female, right lower quadrant abdominal pain. TECHNIQUE: Axial CT images of the abdomen and pelvis were obtained. Coronal and sagittal reformatted performed. COMPARISON: Ultrasound dated 10/15/2020. Exposure: One or more of the following individualized dose reduction techniques were utilized for thi s examination: 1. Automated exposure control 2. Adjustment of the mA and/or kV according to patient size 3. Use of iterative reconstruction technique. FINDINGS: LOWER CHEST: Unremarkable. ABDOMEN/PELVIS: Mild hepatomegaly with diffuse steatosis. Focal fat infiltration hepatic segment 4 adjacent to falcif orm ligament. Ill-defined 4.2 cm hyperattenuating lesion with central hypodensity seen in hepatic seg ment 5/6 (series 2 image 35). Gallbladder, biliary ducts, spleen, pancreas and adrenals are unremarka ble. No hydronephrosis. No bowel obstruction. Normal appendix. Patent abdominal aorta and mesenteric arteries. No pneumoperitoneum or ascites. No abdominopelvic lymphadenopathy by size criteria. Underdi stended urinary bladder which limits evaluation. Unremarkable uterus. No suspicious pelvic masses. MUSCULOSKELETAL STRUCTURES: No acute osseous process. Bilateral L5 pars defect. IMPRESSION: 1. No acute abnormality in the abdomen or pelvis. 2. Mild hepatomegaly with diffuse steatosis. 3. Redemonstrated ill-defined 4.2 cm hyperattenuating lesion with central hypodensity seen in hepatic segment 5/6, indeterminate. Findings suggesting of focal nodular hyperplasia. Other differential con sideration is hepatic adenoma. Recommend further evaluation with MRI liver using hepatobiliary contra st (Eovist). Electronically signed by: Eddy Sanchez MD (03/31/2021 11:25 AM) [id number]
[2021-03-31 12:17] LABS: BASO # 0.1 x10^3/uL (0.0-0.2); BASO % 1 % (0-3); EOS # 0.2 x10^3/uL (0.0-0.7); EOS % 2 % (0-3); HEMATOCRIT 44.7 % (36.0-47.0); LYMPH % 29 % (24-48); MEAN CORPUSCULAR HEMOGLOBIN 30 pg (25-35); MEAN CORPUSCULAR HGB CONC 34 g/dL (31-37); MEAN CORPUSCULAR VOLUME 88 fL (79-100); MONO # 0.5 x10^3/uL (0.0-1.1); MONO % 5 % (0-9); NEUT # 6.6 x10^3uL (1.8-7.7); NEUT % 63 % (31-73); PLATELET COUNT 315 x10^3/uL (140-400); RED CELL DISTRIBUTION WIDTH 14.2 % (11.5-14.5); WHITE BLOOD COUNT 10.5 x10^3/uL (4.0-11.0)
[2021-03-31 12:18] LABS: ALBUMIN 4.1 g/dL (3.4-5.0); ALBUMIN/GLOBULIN RATIO 1.2 (1.0-1.7); CALCIUM 9.2 mg/dL (8.5-10.1); GFR 68.7; POTASSIUM 3.6 mmol/L (3.5-5.1); TOTAL BILIRUBIN 0.5 mg/dL (0.2-1.0); TOTAL PROTEIN 7.6 g/dL (6.4-8.2)
[2021-03-31 12:35] LABS: BACTERIA,URINE 0 /HPF (0-FEW); BILIRUBIN,URINE NEG (NEG); CLARITY,URINE HAZY; COLOR,URINE YELLOW; GLUCOSE,URINE NEG (NEG); NITRITE,URINE NEG (NEG); RBC,URINE >40 /HPF (0-2); SQUAMOUS EPITHELIAL CELL,UR FEW /LPF; UROBILINOGEN,URINE 0.2 mg/dL (0.2 mg/dL); WBC,URINE OCC /HPF (0-4)
[2021-03-31 12:42] LABS: INFLUENZA A PATIENT NEGATIVE (NEGATIVE); INFLUENZA B PATIENT NEGATIVE (NEGATIVE)
[2021-03-31 13:20] VITALS: BP 135/78
[2021-03-31] MEDS ORDERED: KETOROLAC 15 MG/ML VIAL. ONE (13:26)
[2021-03-31] MEDS ORDERED: KETOROLAC 15 MG/ML VIAL. IVP ONE (13:30)
== END 2021-03-31 13:38 | disposition home or self-care (01) ==
LOC: ER 09:59
DX: K76.0 Fatty (change of) liver, not elsewhere classified (principal); R93.2 Abnormal findings on diagnostic imaging of liver and biliary tract; Z20.822 Contact with and (suspected) exposure to COVID-19; R10.84 Generalized abdominal pain
CPT/HCPCS: 74177; 80053; 81001; 81025; 83690; 85025; 87804; 96374; 99285; C9803; J1885; Q9967; U0003

== ENCOUNTER 2021-09-08 10:40 | Emergency (ER) | payer OTHER ==
[~2021-09-08] VITALS: Ht 157.5 cm; Wt 108.0 kg
[2021-09-08] MEDS: HYDROcodone/APAP 5/325MG 1 TAB TABLET PO ONE (11:34)
[2021-09-08 11:50] LABS: BASO % 0 % (0-3); EOS # 0.2 x10^3/uL (0.0-0.7); EOS % 2 % (0-3); HEMATOCRIT 39.2 % (36.0-47.0); HEMOGLOBIN 13.4 g/dL (12.0-15.5); LYMPH # 1.8 x10^3/uL (1.0-4.8); LYMPH % 19 % (24-48); MEAN CORPUSCULAR HEMOGLOBIN 30 pg (25-35); MEAN CORPUSCULAR HGB CONC 34 g/dL (31-37); MEAN CORPUSCULAR VOLUME 89 fL (79-100); MONO # 0.4 x10^3/uL (0.0-1.1); MONO % 4 % (0-9); NEUT # 6.9 x10^3uL (1.8-7.7); NEUT % 74 % (31-73); PLATELET COUNT 277 x10^3/uL (140-400); RED BLOOD COUNT 4.39 x10^6/uL (3.50-5.40); RED CELL DISTRIBUTION WIDTH 14.9 % (11.5-14.5); WHITE BLOOD COUNT 9.3 x10^3/uL (4.0-11.0)
[2021-09-08 11:52] LABS: CALCIUM 8.7 mg/dL (8.5-10.1); CREATININE 0.9 mg/dL (0.6-1.0); GFR 76.9; POTASSIUM 3.9 mmol/L (3.5-5.1)
[2021-09-08 11:58] LABS: ALBUMIN 3.4 g/dL (3.4-5.0); TOTAL BILIRUBIN 0.4 mg/dL (0.2-1.0); TOTAL PROTEIN 6.8 g/dL (6.4-8.2)
--- NOTE | 2021-09-08 12:01 | RAD ---
PQRS Compliance Statement: One or more of the following individualized dose reduction techniques were utilized for this examinat ion: 1. Automated exposure control 2. Adjustment of the mA and/or kV according to patient size 3. Use of iterative reconstruction technique CT abdomen/pelvis without contrast 09/08/2021 11:33 AM INDICATION: Abdominal pain COMPARISON: CT abdomen/pelvis 03/31/2021 TECHNIQUE: Multiple axial CT images of the abdomen and pelvis were obtained without intravenous contr ast. Coronal and sagittal reformats are provided. FINDINGS: Lung bases are clear. Minimal scarring or subsegmental atelectasis identified in the right middle lobe. Heart size is within normal limits. There is subtle hypoattenuating lesion in the inferi or right hepatic lobe measuring 2.0 cm (series 2, image 49). This focal fatty infiltration along the fissure ligamentum teres. Spleen, adrenal glands, pancreas and gallbladder are normal in appearance. The abdominal aorta is normal in course and caliber. There are no pathologically enlarged lymph nodes in the abdomen and pelvis. There is no abdominal free fluid. There is no free intraperitoneal air. The kidneys are relatively symmetric in appearance. There is no suspicious renal mass within the limi tations of a noncontrast examination. There is no hydronephrosis. There are no calculi within the kid neys, ureters or urinary bladder. Small and large bowel are normal in caliber. There is no evidence for bowel obstruction. There are no pericolonic inflammatory changes. A normal, nondilated appendix is visualized without adjacent infla mmatory changes. Urinary bladder is within normal limits. Uterus and adnexa are normal by CT. IMPRESSION: 1. No acute abnormality identified in abdomen and pelvis. 2. There is a subtle 2.0 cm hypoattenuating lesion in the inferior right hepatic lobe which remains i ndeterminate on this examination. Further characterization with abdominal MRI with and without contra st could be of benefit. Findings could reflect an area of focal fatty infiltration or hepatic adenoma . Electronically signed by: Ana Sharp MD (09/08/2021 11:59 AM) [id number]
[2021-09-08 12:12] LABS: BACTERIA,URINE FEW /HPF (0-FEW); CLARITY,URINE CLOUDY; COLOR,URINE YELLOW; GLUCOSE,URINE NEG (NEG); NITRITE,URINE NEG (NEG); RBC,URINE >40 /HPF (0-2); SQUAMOUS EPITHELIAL CELL,UR MANY /LPF; UROBILINOGEN,URINE 0.2 mg/dL (0.2 mg/dL)
--- NOTE | 2021-09-08 12:15 | PHYS DOC ---
Past History Past Medical History: Anxiety, Asthma, Depression, Other Additional Past Medical Histor: born with FAS - delayed learning; blood clot in bladder Past Surgical History: Other Additional Past Surgical Histo: bladder surery to stretch urethra Smoking: Non-smoker Alcohol Use: Occasionally Drug Use: None General Adult EDM: Chief Complaint: MUSCLE SPASM/CRAMP HPI: HPI: Patient is a 26-year-old female presents with abdominal cramping and vaginal bleeding. Patient states that she started her period on 08/17 and is still bleeding. Patient states that she has been using around 4 tampons a day. Patient reports that she has had heavy bleeding in the past. Patient does not have a BRAIDING MACHINE OPERATOR. Patient reports taking ibuprofen this morning with little relief. No nausea/vomiting/diarrhea. Denies medical history. Review of Systems: Review of Systems: ROS At least 10 ROS systems have been reviewed and are negative except as documented in the HPI. General: Negative except as outlined in HPI above. Skin: Negative except as outlined in HPI above. HEENT: Negative except as outlined in HPI above. Neck: Negative except as outlined in HPI above. Respiratory: Negative except as outlined in HPI above.. Cardiovascular: Negative except as outlined in HPI above. Abdomen: Negative except as outlined in HPI above. : Negative except as outlined in HPI above. Back/MSK: Negative except as outlined in HPI above. Neuro: Negative except as outlined in HPI above. Psych: Negative except as outlined in HPI above. Current Medications: Current Meds: Current Medications Medications (Trade) Dose Ordered Sig/John Start Time Stop Time Status Last Admin Dose Admin Acetaminophen/ Hydrocodone Bitart (Lortab 5/325) 1 tab 1X ONCE 09/08/21 11:45 09/08/21 11:46 DC 09/08/21 11:34 1 TAB Allergies: Allergies: Allergies Coded Allergies Type Severity Reaction Last Updated Verified No Known Drug Allergies 03/31/21 No Physical Exam: PE: Constitutional: Well developed, well nourished, no acute distress, non-toxic appearance. [] HENT: Normocephalic, atraumatic, bilateral external ears normal, oropharynx moist, no oral exudates, nose normal. [] Eyes: PERRLA, EOMI, conjunctiva normal, no discharge. [] Neck: Normal range of motion, no tenderness, supple, no stridor. [] Cardiovascular:Heart rate regular rhythm, no murmur [] Lungs & Thorax: Bilateral breath sounds clear to auscultation [] Abdomen: Bowel sounds normal, soft, tenderness Skin: Warm, dry, no erythema, no rash. [] Back: No tenderness, no CVA tenderness. [] Extremities: No tenderness, no cyanosis, no clubbing, ROM intact, no edema. [] Neurologic: Alert and oriented X 3, normal motor function, normal sensory function, no focal deficits noted. [] Psychologic: Affect normal, judgement normal, mood normal. [] Current Patient Data: Labs: Laboratory Tests Test 09/08/21 10:11 09/08/21 11:22 POC Urine HCG, Qualitative hcg negative (Negative) White Blood Count 9.3 x10^3/uL (4.0-11.0) Red Blood Count 4.39 x10^6/uL (3.50-5.40) Hemoglobin 13.4 g/dL (12.0-15.5) Hematocrit 39.2 % (36.0-47.0) Mean Corpuscular Volume 89 fL (79-100) Mean Corpuscular Hemoglobin 30 pg (25-35) Mean Corpuscular Hemoglobin Concent 34 g/dL (31-37) Red Cell Distribution Width 14.9 % (11.5-14.5) H Platelet Count 277 x10^3/uL (140-400) Neutrophils (%) (Auto) 74 % (31-73) H Lymphocytes (%) (Auto) 19 % (24-48) L Monocytes (%) (Auto) 4 % (0-9) Eosinophils (%) (Auto) 2 % (0-3) Basophils (%) (Auto) 0 % (0-3) Neutrophils # (Auto) 6.9 x10^3uL (1.8-7.7) Lymphocytes # (Auto) 1.8 x10^3/uL (1.0-4.8) Monocytes # (Auto) 0.4 x10^3/uL (0.0-1.1) Eosinophils # (Auto) 0.2 x10^3/uL (0.0-0.7) Basophils # (Auto) 0.0 x10^3/uL (0.0-0.2) Sodium Level 139 mmol/L (136-145) Potassium Level 3.9 mmol/L (3.5-5.1) Chloride Level 105 mmol/L (98-107) Carbon Dioxide Level 26 mmol/L (21-32) Anion Gap 8 (6-14) Blood Urea Nitrogen 16 mg/dL (7-20) Creatinine 0.9 mg/dL (0.6-1.0) Estimated GFR (Cockcroft-Gault) 76.9 BUN/Creatinine Ratio 18 (6-20) Glucose Level 79 mg/dL (70-99) Calcium Level 8.7 mg/dL (8.5-10.1) Total Bilirubin 0.4 mg/dL (0.2-1.0) Aspartate Amino Transferase (AST) 18 U/L (15-37) Alanine Aminotransferase (ALT) 28 U/L (14-59) Alkaline Phosphatase 87 U/L (46-116) Total Protein 6.8 g/dL (6.4-8.2) Albumin 3.4 g/dL (3.4-5.0) Albumin/Globulin Ratio 1.0 (1.0-1.7) Lipase 94 U/L (73-393) Vital Signs: Vital Signs Date Time Temp Pulse Resp B/P (MAP) Pulse Ox O2 Delivery O2 Flow Rate FiO2 09/08/21 11:34 16 09/08/21 10:48 98.3 90 141/90 (107) 98 Room Air EKG: EKG: [] Radiology/Procedures: Radiology/Procedures: []PQRS Compliance Statement: One or more of the following individualized dose reduction techniques were utilized for this examination: 1. Automated exposure control 2. Adjustment of the mA and/or kV according to patient size 3. Use of iterative reconstruction technique CT abdomen/pelvis without contrast 09/08/2021 11:33 AM INDICATION: Abdominal pain COMPARISON: CT abdomen/pelvis 03/31/2021 TECHNIQUE: Multiple axial CT images of the abdomen and pelvis were obtained without intravenous contrast. Coronal and sagittal reformats are provided. FINDINGS: Lung bases are clear. Minimal scarring or subsegmental atelectasis identified in the right middle lobe. Heart size is within normal limits. There is subtle hypoattenuating lesion in the inferior right hepatic lobe measuring 2.0 cm (series 2, image 49). This focal fatty infiltration along the fissure ligamentum teres. Spleen, adrenal glands, pancreas and gallbladder are normal in appearance. The abdominal aorta is normal in course and caliber. There are no pathologically enlarged lymph nodes in the abdomen and pelvis. There is no abdominal free fluid. There is no free intraperitoneal air. The kidneys are relatively symmetric in appearance. There is no suspicious renal mass within the limitations of a noncontrast examination. There is no hydronephrosis. There are no calculi within the kidneys, ureters or urinary bladder. Small and large bowel are normal in caliber. There is no evidence for bowel obstruction. There are no pericolonic inflammatory changes. A normal, nondilated appendix is visualized without adjacent inflammatory changes. Urinary bladder is within normal limits. Uterus and adnexa are normal by CT. IMPRESSION: 1. No acute abnormality identified in abdomen and pelvis. 2. There is a subtle 2.0 cm hypoattenuating lesion in the inferior right hepatic lobe which remains indeterminate on this examination. Further characterization with abdominal MRI with and without contrast could be of benefit. Findings could reflect an area of focal fatty infiltration or hepatic adenoma. Electronically signed by: Ana Sharp MD (09/08/2021 11:59 AM) [id number] Heart Score: C/O Chest Pain: No Risk Factors: Risk Factors: DM, Current or recent (<one month) smoker, HTN, HLP, family history of CAD, obesity. Risk Scores: Score 0 - 3: 2.5% MACE over next 6 weeks - Discharge Home Score 4 - 6: 20.3% MACE over next 6 weeks - Admit for Clinical Observation Score 7 - 10: 72.7% MACE over next 6 weeks - Early Invasive Strategies Course & Med Decision Making: Course & Med Decision Making Pertinent Labs and Imaging studies reviewed. (See chart for details) [] 26-year-old female presents with abdominal cramping and vaginal bleeding. Patient's period started on 08/17 and she is continued to bleed. Patient reports going through about 4 tampons a day. Patient states she has had this happen in the past and was treated with pain medication and follow-up with BRAIDING MACHINE OPERATOR. Patient does not have a BRAIDING MACHINE OPERATOR that she sees. Hemodynamically stable. Afebrile. Work-up in ER consisted of CBC, CMP, UA, , CT abdomen and pelvis. Patient's pain was treated while in the ER. All labs unremarkable. H&H is within normal limits. CT of abdomen pelvis negative for acute findings.CT does show there is a subtle 2.0 cm hypoattenuating lesion in the inferior right hepatic lobe which remains indeterminate on this examination. Further characterization with abdominal MRI with and without contrast could be of benefit. Findings could reflect an area of focal fatty infiltration or hepatic adenoma. Provided patient with a copy of CT results. Advised patient to follow-up with PCP for further evaluation and possible MRI. Discussed return precautions. Patient is hemodynamically stable upon disposition. Dragon Disclaimer: [place] Disclaimer: This electronic medical record was generated, in whole or in part, using a voice recognition dictation system. Departure Departure: Impression: Primary Impression: Abdominal cramping Additional Impression: Abnormal menstrual cycle Disposition: HOME / SELF CARE / HOMELESS Condition: STABLE Referrals: LUIS AQUINO (PCP) Patient Instructions: Abdominal Pain Additional Instructions: You are seen in the emergency room for abdominal pain and cramping. CT of your abdomen did not show any acute findings. I did show an area of suspicion that recommended a follow-up. Please contact your PCP make an appointment for follow-up imaging to be completed. All of your labs were unremarkable. Return to emergency room if you have worsening symptoms or concerns such as increase in bleeding, pain. EMERGENCY DEPARTMENT GENERAL DISCHARGE INSTRUCTIONS Thank you for coming to [facility] (ED) today and trusting us with you care. We trust that you had a positivie experience in our Emergency Department. If you wish to speak to the department management, you may call the director at [phone]. YOUR FOLLOW UP INSTRUCTIONS ARE FOLLOWS: 1. Do you have a private Doctor? If you do not have a private doctor, please ask for a resource list of physicians or clinics that may be able to assist you with follow up care. 2. The Emergency Physician has interpreted your x-rays. The X-Ray specialist will also review them. If there is a change in the findings, you will be notified in 48 hours when at all possible. 3. A lab test or culture has been done, your results will be reviewed and you will be notified if you need a change in treatment. ADDITIONAL INSTRUCTIONS AND INFORMATION: 1. Your care today has been supervised by a physician who is specially trained in emergency care. Many problems require more than one evaluation for a complete diagnosis and treatment. We recommend that you schedule your follow up appointment as recommended to ensure complete treatment of you illness or injury. If you are unable to obtain follow up care and continue to have a problem, or if your condition worsens, we recommend that you return to the ED. 2. We are not able to safely determine your condition over the phone nor are we able to give sound medical advice over the phone. For these safety reasons, if you call for medical advice we will ask you to come to the ED for further evaluation. 3. If you have any questions regarding these discharge instructions please call the ED at [phone]. SAFETY INFORMATION: In the interest of safety, wellness, and injury prevention; we encourage you to wear your sealbelt, if you smoke; quite smoking, and we encourage family to use a protective helmet for bicycling and other sporting events that present an increased risk for head injury. IF YOUR SYMPTOMS WORSEN OR NEW SYMPTOMS DEVELOP, OR YOU HAVE CONCERNS ABOUT YOUR CONDITION; OR IF YOUR CONDITION WORSENS WHILE YOU ARE WAITING FOR YOUR FOLLOW UP APPOINTMENT; EITHER CONTACT YOUR PRIMARY CARE DOCTOR, THE PHYSICIAN WHOSE NAME AND NUMBER YOU WERE GIVEN, OR RETURN TO THE ED IMMEDIATELY. Scripts Hydrocodone Bit/Acetaminophen (HYDROCODONE-APAP 5-325 ) 1 Each Tablet 0.5-1 TAB PO PRN Q6HRS PRN for PAIN for 3 Days, #12 TAB 0 Refills Prov: VAIBHAV DIAZ APRN 09/08/21 VAIBHAV DIAZ APRN Sep 08, 2021 12:15
[2021-09-08] MEDS ORDERED: HYDR-2155 PO (13:42)
[2021-09-08 13:48] VITALS: BP 132/80
== END 2021-09-08 13:48 | disposition home or self-care (01) ==
LOC: ER 10:40
DX: N92.6 Irregular menstruation, unspecified (principal); R10.9 Unspecified abdominal pain; J45.909 Unspecified asthma, uncomplicated; F41.9 Anxiety disorder, unspecified; F32.9 Major depressive disorder, single episode, unspecified
CPT/HCPCS: 36415; 74176; 80053; 81001; 81025; 83690; 85025; 87086; 99284